=== PATIENT | male | born 1945 | race Caucasian/White ===

== ENCOUNTER → 2017-09-14 11:05 | Outpatient (CLI) | payer MEDICARE, OTHER, SELFPAY ==
[2017-09-14 12:14] LABS: Anion Gap 5 (5-15); BUN 21 mg/dL (7-18); BUN/Creat Ratio 14.2 RATIO (10-20); Chloride 107 mmol/L (98-107); Creatinine, Serum 1.48 mg/dL (0.70-1.30); EST Glomerular Filtration Rate 50 mL/min (>60); Est Glom Filt Rate - Afr Amer 60 mL/min (>60); Glucose 90 mg/dL (74-106); Potassium 4.4 mmol/L (3.5-5.1); Sodium Level 140 mmol/L (136-145)
== END ==
PROVIDERS: Family Medicine; Family Provider Family Medicine; PCP Family Medicine; Visit Provider Family Medicine
DX: R94.4 Abnormal results of kidney function studies (principal)
CPT/HCPCS: 36415; 80048

== ENCOUNTER → 2018-01-07 07:41 | Outpatient (CLI) | payer MEDICARE, OTHER, SELFPAY ==
[2018-01-07 10:48] LABS: AST(SGOT) 17 U/L (15-37); Alanine Aminotransfer ALT/SGPT 21 U/L (16-61); Albumin, Serum 3.5 g/dL (3.2-5.0); Alkaline Phosphatase 82 U/L (45-117); Anion Gap 9 (5-15); BUN 25 mg/dL (7-18); Calcium,Total 8.7 mg/dL (8.5-10.1); Chloride 108 mmol/L (98-107); Cholesterol 209 mg/dL (200); Creatinine, Serum 1.39 mg/dL (0.70-1.30); EST Glomerular Filtration Rate 53 mL/min (>60); Est Glom Filt Rate - Afr Amer 65 mL/min (>60); Globulin 3.4 g/dL (2.2-4.2); Glucose 90 mg/dL (74-106); High Density Lipoprotein 40 mg/dL; Potassium 4.2 mmol/L (3.5-5.1); Protein, Total 6.9 g/dL (6.4-8.2); Sodium Level 142 mmol/L (136-145); Triglycerides 122 mg/dL; Very Low Density Lipoprotein 24 mg/dL (5-40)
[2018-01-20 10:00] LABS: Alternaria alternata 0.11 kU/L (Class 0/I); Aspergillus fumigatus 0.14 kU/L (Class 0/I); Bahia Grass 0.66 kU/L (Class II); Bermuda Grass 1.19 kU/L (Class II); Bluegrass, Kentucky 0.59 kU/L (Class II); Cat Hair/Dander, Standard <0.10 kU/L (Class 0); Cedar, Mountain 0.32 kU/L (Class I); Cladosporium herbarum <0.10 kU/L (Class 0); Cockroach, American 0.11 kU/L (Class 0/I); D farinae Mite 0.44 kU/L (Class I); D pteronyssinus <0.10 kU/L (Class 0); Dog Epithelia <0.10 kU/L (Class 0); Elm, American White 0.58 kU/L (Class II); Hazelnut Tree 0.14 kU/L (Class 0/I); Hickory, White 0.58 kU/L (Class II); Johnson Grass 0.69 kU/L (Class II); Maple/Box Elder 0.54 kU/L (Class I); Mucor racemosus <0.10 kU/L (Class 0); Mulberry, White 0.21 kU/L (Class 0/I); Oak, White 0.76 kU/L (Class II); Penicillium chrysogen 0.69 kU/L (Class II); Plantain, English 0.69 kU/L (Class II); Ragweed, Short/Common 0.58 kU/L (Class II); Sheep Sorrel(Dock) 1.09 kU/L (Class II); Stemphylium herbarum 0.12 kU/L (Class 0/I); Sweet Gum 0.44 kU/L (Class I); Sycamore, American 1.02 kU/L (Class II)
[2018-01-20 10:33] LABS: Nettle 0.25 kU/L (Class 0/I)
== END ==
PROVIDERS: Family Provider Family Medicine; PCP Family Medicine; Visit Provider Internal Medicine Pulmonary Disease
DX: I10 Essential (primary) hypertension (principal); J45.909 Unspecified asthma, uncomplicated
CPT/HCPCS: 36415; 80053; 80061; 86003

== ENCOUNTER → 2018-07-20 14:53 | Outpatient (CLI) | payer MEDICARE, OTHER, SELFPAY ==
--- NOTE | 2018-07-20 | IMM_PTH ---
PATIENT: DELORES LOTT LOC: [facility] U#:[id number] AGE/SX: 80/M ROOM: RE07/20/[address]: Dr. Magdy Wilson MD : 1945 BED: DIS: SPEC #: [id number] RECD: 07/21/18 13:27 STATUS: UZMA REQ #: [id number] BOBBY: 07/20/18 00:[address]: Magdy Wilson DEPT: IMMUNOHISTOCHEMISTRY RECD BY: Verito Salguero Tissues: Skin of abdomen, NOS Procedures: CK5-6 (initial) MART1 (add) P40 (add) S-100 (add) PHYSICIAN & INSTITUTION [place] [address] SPECIMEN INFORMATION: Tissue Source: Skin of left abdomen, shave biopsy Clinical Info: Skin lesion abdomen Specimen Number: [id number] CPT code: 04460, 78620 x3 METHODOLOGY: Deparaffinized sections of prefer/formalin-fixed tissue or PAP/DQ stained slides are incubated with monoclonal/polyclonal antibodies/oligonucleotide probes. Localization is made via biotin free immunoperoxidase method. Appropriate controls are performed and reacted as expected. Results on target cell population are indicated in the following table: RESULTS: ANTIBODY / CLONE RESULT P40 (BC28) positive CK5-6 (D5 & 1684) positive S-100 (4C4.9) negative MART-1 (A-103) negative These tests were developed and their performance characteristics determined by [facility]. They may not have been cleared or approved by the [place]. Food and Drug Administration. The FDA has determined that such clearance or approval is not necessary. 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 MOR:hardy 07/22/18
--- NOTE | 2018-07-20 10:00 | LES_PTH ---
PATIENT: DELORES LOTT LOC: [facility] U#:[id number] AGE/SX: 80/M ROOM: RE07/20/[address]: Dr. Magdy Wilson MD : 1945 BED: DIS: SPEC #: [id number] RECD: 07/20/18 14:15 STATUS: UZMA LAVELL #: [id number] BOBBY: 07/20/18 10:[address]: Magdy Wilson DEPT: SURGICAL PATHOLOGY RECD BY: Verito Salguero Tissues: Skin of abdomen, NOS Procedures: Surgery Specimen Level IV HEADER OPERATION: Skin shave lesion PRE-OP DIAGNOSIS: Skin lesion abdomen TISSUE SUBMITTED: Skin shave biopsy left abdomen MICROSCOPIC DIAGNOSIS Left abdomen skin lesion, shave biopsy: Squamous cell carcinoma in situ, appears to be completely excised in the planes of sections examined. See comment. MOR:hardy 07/21/18 COMMENT Immunohistochemistry ([id number]) supports the above diagnosis. 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 Case has been reviewed in consultation with Dr. Moreno who concurs with the above diagnosis. IDC:AM MICROSCOPIC DESCRIPTION Slides are reviewed. GROSS DESCRIPTION Received is one container labeled with the patient's name and not further designated. The specimen consists of a shave biopsy of neves-white skin measuring 1 x 0.8 cm and 0.1 cm in thickness. The specimen is inked and submitted entirely in one cassette. It will be serially sectioned at the time of embedding. / MOR:hardy 07/20/18 TC:0 CPT: 33818
--- OUTSIDE RECORDS SUMMARY | 2018-09-05 20:27 | XMS RPT_ITS ---
:1945 Author Organization OHIP Care Team Providers Name Role Phone Magdy Wilson Attending Unavailable Magdy Wilson Referring Unavailable Katie, Magdy Primary Care Unavailable Magdy Wilson Attending Unavailable Magdy Wilson Referring Unavailable Katie, Magdy Primary Care Unavailable Magdy Wilson Attending Unavailable Magdy Wilson Primary Care Unavailable Jerel Ramos Attending Unavailable Jerel Ramos Referring Unavailable [facility], [facility] Unavailable Katie, [facility] Unavailable Dewayne Sr Attending Unavailable PROBLEMS PROBLEMS No Problem Records FoundPROCEDURES PROCEDURES No Procedure Records FoundRESULTS RESULTS EMERGENCY DEPARTMENT Observed: 08/07/2018 Status: F Source: [place] SUMMARY 8:14 AM [facility] REPOSITORY [facility] Medical Records Department [address] [place] [address] Emergency Department Summary 08/07/18 0809 MR#: [id number] Acct: [id number] Name: DELORES LOTT Rep #: [id number] : 1945 73 From: Dewayne Sr MD PCP: Magdy Wilson MD Status: PRE ER - ER Visit Summary Date of Service: 08/07/18 Chief Complaint: Cough History of Present Illness: The patient is a 73 M with a cough for the past 3 days. It wakes him up from sleep. He has no problems breathing. He has no fever or chills. He has some rhinorrhea. He has a history of asthma and has been using his albuterol. No chest pain, no abdominal pain. No neck pain. Physical Examination: Not appear in acute distress. He is speaking in full sentences without respiratory difficulty. Moist mucous membranes, there is some slight postnasal drip and rhinorrhea. No C-spine tenderness supple neck. Regular rate and rhythm without any obvious murmurs Clear lungs bilaterally speaking in full sentences without any obvious respiratory distress. He does have an active dry cough but otherwise clear lungs. Abdomen soft and nontender no guarding or rebound Moves all extremities without any difficulty or pain. Skin does not show any obvious rashes or lesions, no trauma. Alert oriented 3 with no gross focal deficit Emergency Department Course and Treatment: Patient has clear lungs, his sole complaint is a cough, this is likely bronchitis, will treat as such. I am not worried about a pneumonia and he has no fever no respiratory symptoms other than cough. He had a x-ray a few months ago which did not show any lung mass or lesion. I will discharge him with steroids and an albuterol inhaler. I do not believe antibiotics are warranted at this time. Disposition: Discharge stable condition Impression: Bronchitis This note was generated with Summay dictation software. It may contain incorrect words, spelling, and punctuation that were not noted in review of the chart prior to signing ED Disposition - Plan for ED Patient: Disposition: Home or Assisted Living Chief Complaint: Cough Instructions: ED Bronchitis Asthmatic Prescriptions: Prednisone 60 mg PO DAILY #15 tab Referrals: Jerel Ramos MD [STAFF PHYSICIAN] - 2 Days What to do if you have Problems For any increased pain, shortness of breath, bleeding, nausea or vomiting, chest pain, or any unexpected problems, contact your Primary Care Provider. Call [facility] ([phone]) or report to the closest Emergency Room. Call 911 if necessary. 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 GROSS DESCRIPTION Received in fixative is one container labeled with the patient's name and designated left trunk. The specimen consists of an ellipse of light neves excised skin measuring 1.5 x 0.7 cm and a depth of excision measuring 0.2 cm. The cutaneous surface contains a waxy neves lesion measuring 1 cm in greatest dimension. The specimen is inked, serially sectioned and totally submitted in one cassette. / AM:hardy 08/04/18 TC:3 CPT: 36993 HEADER OPERATION: Excision PRE-OP DIAGNOSIS: SCC trunk left TISSUE SUBMITTED: Skin biopsy excision MICROSCOPIC DESCRIPTION Slides are reviewed. MICROSCOPIC DIAGNOSIS Skin lesion of left trunk, biopsy: Cicatrix with associated reparative and reactive change. Mild hyperkeratosis. No evidence of malignancy. AM:hardy 08/05/18 Signed Tj Moreno DO 08/05/18 <signature on file> Performed By: #### PLES #### [facility] [address] [place], [address] LESION (CHOOSE SITE) Observed: 07/20/2018 Status: F Source: [place] 10:00 AM [facility] REPOSITORY Patient: DELORES LOTT : 1945 (73/M) Acct Num: [id number] [facility] Num: [id number] Loc: LABSPEC Specimen: [id number] Received: 07/20/18 - 1415 Spec Type: Lesion TISSUES 1 TISSUES: Skin of abdomen, NOS COMMENT Immunohistochemistry ([id number]) supports the above diagnosis. 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 Case has been reviewed in consultation with Dr. Moreno who concurs with the above diagnosis. IDC:AM GROSS DESCRIPTION Received is one container labeled with the patient's name and not further designated. The specimen consists of a shave biopsy of neves- white skin measuring 1 x 0.8 cm and 0.1 cm in thickness. The specimen is inked and submitted entirely in one cassette. It will be serially sectioned at the time of embedding. / MOR:hardy 07/20/18 TC:0 CPT: 95291 HEADER OPERATION: Skin shave lesion PRE-OP DIAGNOSIS: Skin lesion abdomen TISSUE SUBMITTED: Skin shave biopsy left abdomen MICROSCOPIC DESCRIPTION Slides are reviewed. MICROSCOPIC DIAGNOSIS Left abdomen skin lesion, shave biopsy: Squamous cell carcinoma in situ, appears to be completely excised in the planes of sections examined. See comment. SJ:hardy 07/21/18 Signed Bryan Bustamante 07/22/18 <signature on file> Performed By: #### PLES #### [facility] [place], [address] IMMUNOHISTOCHEMISTRY Observed: 07/20/2018 Status: F Source: [place] 12:00 AM [facility] REPOSITORY Patient: DELORES LOTT : 1945 (73/M) Acct Num: [id number] Phys: Katie LUCAS,[place] Unit Num: [id number] Loc: LABSPEC Specimen: [id number] Received: 07/21/181326 Spec Type: IMMUNO TISSUES 1 TISSUES: Skin of abdomen, NOS SPECIMEN INFORMATION: Tissue Source: Skin of left abdomen, shave biopsy Clinical Info: Skin lesion abdomen Specimen Number: [id number] CPT code: 56532, 24547 x3 METHODOLOGY: Deparaffinized sections of prefer/formalin-fixed tissue or PAP/DQ stained slides are incubated with monoclonal/polyclonal antibodies/oligonucleotide probes. Localization is made via biotin free immunoperoxidase method. Appropriate controls are performed and reacted as expected. Results on target cell population are indicated in the following table: RESULTS: ANTIBODY / CLONE RESULT P40 (BC28) positive CK5-6 (D5 AND 1684) positive S-100 (4C4.9) negative MART-1 (A-103) negative These tests were developed and their performance characteristics determined by [facility]. They may not have been cleared or approved by the U.S. Food and Drug Administration. The FDA has determined that such clearance or approval is not necessary. 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 SJ:hardy 07/22/18 PHYSICIAN AND INSTIT[facility] [address] [address] Signed Bryan Bustamante 07/22/18 <signature on file> Performed By: #### PIMM #### [facility] [address] [place] [address]. [place], [place], [id number] ALLERGENS, ZONE 8 Collected: 01/07/2018 Status: F Source: [place] 7:47 AM [facility] REPOSITORY Order Comment: Test(s) [id number] Cockroach, Senegalese; 817329- I573-DeC Sonoma, White; 901340-E433-IbP Sweet Gum were developed and had performance characteristics determined by [facility]. These tests have not been cleared or approved by the U.S. Food and Drug Administration. The FDA has determined that such clearance or approval is not necessary. These tests are used for clinical purposes. These should not be regarded as investigational or for research. TYPE CODE TESTS RESULT OUT OF REFERENCE UNITS RANGE LAB L5500.1001 Class 0 kU/L D PTERONYSSINUS Normal <0.10 LAB L5500.1002 Class I kU/L D FARINAE MITE High 0.44 LAB L5500.2001 Class 0 kU/L CAT HAIR/DANDER Normal <0.10 LAB L5500.2002 Class 0 kU/L DOG EPITHELIA Normal <0.10 LAB L5500.4002 Class II kU/L BERMUDA GRASS High 1.19 LAB L5500.4008 Class II kU/L BLUE[place]ASS, [place] High 0.59 LAB L5500.4010 Class II kU/L HANK GRASS High 0.69 LAB L5500.4017 Class II kU/L BAHIA GRASS High 0.66 LAB L5500.5001 Class II kU/L PEN CHRYSOGEN High 0.69 LAB L5500.5002 Class 0 kU/L CLADOSPOR HERB Normal <0.10 LAB L5500.5003 Class 0/I kU/L ASPERGILLUS FUM High 0.14 LAB L5500.5004 Class 0 kU/L MUCOR RACEMOSUS Normal <0.10 LAB L5500.5006 Class 0/I kU/L A. ALTERNATA High 0.11 LAB L5500.5010 Class 0/I kU/L STEMPHYLIUM HER High 0.12 LAB L5500.6007 Class II kU/L OAK, WHITE High 0.76 LAB L5500.6008 Class II kU/L ELM,AMER WHITE High 0.58 LAB L5500.6018 Class I kU/L MAPLE/BOX ELDER High 0.54 LAB L5500.6040 Class 0/I kU/L HAZELNUT TREE High 0.14 LAB L5500.6041 Class II kU/L HICKORY, WHITE High 0.58 LAB L5500.6061 Class II kU/L SYCAMORE, AMER High 1.02 LAB L5500.6100 Class 0/I kU/L MULBERRY, WHITE High 0.21 LAB L5500.6211 Class I kU/L SWEET GUM High 0.44 LAB L5500.6225 Class I kU/L CEDAR, MOUNTAIN High 0.32 LAB L5500.7001 Class II kU/L RAGWEED SH/COM High 0.58 LAB L5500.7006 Class 0/I kU/L MUGWORT High 0.30 LAB L5500.7009 Class II kU/L PLANTAIN,ENGLSH High 0.69 LAB L5500.7014 Class I kU/L PIGWEED, ROUGH High 0.40 LAB L5500.7018 Class II kU/L SHEEP SORREL High 1.09 LAB L5500.7020 Class 0/I kU/L NETTLE High 0.25 Result Comment: Performed at: [facility] [id number] Flattening Machine Operator: Delores Lino MD, Phone: [phone] LAB L5500.7100 Class 0/I kU/L COCKROACH,AMER High 0.11 LAB L5500.8100 . RAST COMMENT Normal Comment Result Comment: Levels of Specific IgE Class Description of Class ----- < 0.10 0 Negative 0.10 - 0.31 0/I Equivocal/Low 0.32 - 0.55 I Low 0.56 - 1.40 II Moderate 1.41 - 3.90 III High 3.91 - 19.00 IV Very High 19.01 - 100.00 V Very High >100.00 Very High Performed By: #### L5500.0600 #### [facility] (refer to report for specific site) refer to report for address and phone number COMPREHENSIVE METABOLIC Collected: 01/07/2018 Status: F Source: [place] 7:46 AM [facility] REPOSITORY Order Comment: Order Date: 09/29/17 Order Info: 0667-1 - BMP Order Date: 12/28/17 Order Info: 0786-1 - CMP Order Info: 42438-5 - LIPID TYPE CODE TESTS RESULT OUT OF RANGE REFERENCE UNITS LAB L501.0100 74-106 mg/dL Normal GLU 90 Result Comment: Please note revised GLUCOSE reference range effective 2017. LAB L501.1000 7-18 mg/dL High BUN 25 LAB L501.1100 0.70-1.30 mg/dL High CREAT,SERUM 1.39 Result Comment: The validity of the calculated GFR AND GFRAA in patients over 70 years has not been determined. Clinical correlation is essential. LAB L501.1110 >60 mL/min Low EST GFR 53 Result Comment: Non- GFR Calc LAB L501.1115 >60 mL/min Normal EST GFR - AA 65 Result Comment: GFR Calc LAB L501.1300 10-20 RATIO Normal BUN/CRE 18.0 LAB L501.1500 6.4-8.2 g/dL T Normal PROT 6.9 LAB L501.1800 3.2-5.0 g/dL Normal ALB 3.5 LAB L501.1950 2.2-4.2 g/dL Normal GLOB 3.4 LAB L501.2000 0.9-2.4 RATIO Normal A/G 1.0 LAB L501.2200 8.5-10.1 mg/dL CA Normal 8.7 LAB L501.4100 15-37 U/L Normal AST 17 LAB L501.4305 45-117 U/L Normal ALK P 82 LAB L501.4405 16-61 U/L Normal ALT 21 LAB L501.4600 0.20-1.00 mg/dL T Normal BILI 0.50 LAB L501.5300 136-145 mmol/L NA Normal 142 LAB L501.5600 3.5-5.1 mmol/L K Normal 4.2 LAB L501.5900 98-107 mmol/L High CL 108 LAB L501.6100 21.0-32.0 mmol/L Normal CO2 25.0 LAB L501.6200 5-15 Normal GAP 9 Performed By: #### L500.4050, L500.4100 #### [facility] [address] [place], [address] LIPID PROFILE Collected: 01/07/2018 Status: F Source: [place] 7:46 AM [facility] REPOSITORY Order Comment: Order Date: 09/29/17 Order Info: 0667-1 - BMP Order Date: 12/28/17 Order Info: 0786-1 - CMP Order Info: 55794-9 - LIPID TYPE CODE TESTS RESULT OUT OF RANGE REFERENCE UNITS LAB L501.4900 200 mg/dL High CHOL 209 Result Comment: <200 mg/dL Desirable 200-240 mg/dL Borderline >240 mg/dL High Risk LAB L501.5000 mg/dL Normal TRIG 122 Result Comment: The drugs N-Acetylcysteine and Metamizole may falsely depress this assay. Serum Triglycerides Reference Interval Normal <150 mg/dL Borderline high 150 - 199 mg/dL High 200 - 499 mg/dL Very High > or = 500 mg/dL LAB L501.6400 mg/dL Normal HDL 40 Result Comment: The drugs N-Acetylcysteine and Metamizole may falsely depress this assay. Reference Range HDL <40 mg/dL Low HDL Cholesterol HDL >or= 60 mg/dL High HDL Cholesterol LAB L501.6500 0-130 mg/dL High LDL 145 LAB L501.6600 5-40 mg/dL Normal VLDL 24 Performed By: #### L500.4050, L500.4100 #### [facility] [address] [place], [address] BASIC METABOLIC Collected: 09/14/2017 Status: F Source: [place] PROFILE (BMP) 11:08 AM [facility] REPOSITORY Order Comment: Order Date: 09/14/17 Order Info: 0667-1 - [facility] TYPE CODE TESTS RESULT OUT OF RANGE REFERENCE UNITS LAB L501.0100 74-106 mg/dL Normal GLU 90 LAB L501.1000 7-18 mg/dL High BUN 21 LAB L501.1100 0.70-1.30 mg/dL High 1.48 CREAT,SERUM Result Comment: The validity of the calculated GFR AND GFRAA in patients over 70 years has not been determined. Clinical correlation is essential. LAB L501.1110 >60 mL/min Low EST GFR 50 Result Comment: Non- GFR Calc LAB L501.1115 >60 mL/min Normal EST GFR - AA 60 Result Comment: GFR Calc LAB L501.1300 10-20 RATIO Normal BUN/CRE 14.2 LAB L501.2200 8.5-10.1 mg/dL CA Normal 9.0 LAB L501.5300 136-145 mmol/L NA Normal 140 LAB L501.5600 3.5-5.1 mmol/L K Normal 4.4 Result Comment: Slight Hemolysis, Result may be falsely increased. LAB L501.5900 98-107 mmol/L Normal CL 107 LAB L501.6100 21.0-32.0 mmol/L Normal CO2 28.0 LAB L501.6200 5-15 Normal 5 GAP Performed By: #### L500.2500 #### [facility] [address] [place], [address] ALLERGIES ALLERGIES DATE TYPE / CODE NAME / CODE REACTION SEVERITY SOURCE 08/07/2018 Drug codeine/F006 [facility] 508[facility](RX[facility](SNOMED M) Repository CT) 08/07/2018 Drug levofloxacin Swelling Unknown [facility] Allergy/4160 /[id number]( [facility](SNOMED RXNORM) Repository CT) ENCOUNTERS ENCOUNTERS ADMIT/DISCHARGE ACCOUNT ADMITTING ENCOUNTER LOCATION SOURCE NUMBER CLASS 08/07/2018/ [id number] Emergency [facility] [place] [facility] 4 [facility] ing:ED Repository 08/03/2018 [id number] Ambulatory [facility] [place] 1 [facility] ing:LABSPEC Repository 07/20/2018 [id number] Ambulatory [place] 7 [facility] ing:LABSPEC Repository 01/07/2018 [id number] Ambulatory [place] 9 [facility] ing:MTLAB Repository 09/14/2017 [id number] Ambulatory [facility] [place] 7 [facility] ing:MFPLAB Repository PAYERS PAYERS ENCOUNTER GUARANTOR PAYER SUBSCRIBER SOURCE 08/07/2018 DELORES Guerin Primary DELORES Aleman [id number] E Insurance:MEDICARE COOPERDOB: [facility] PART A [facility] [id number]: Repository [address]Rbs: [phone] [id number] [phone] () Date:2018-08-07 08/07/2018 Secondary DELORES Truong Aleman Insurance:[facility] COOPERDOB: [facility] Number: [id number] [id number] Repository Date:8825-69-20[address], [place] [address]CM: 08/07/2018 Tertiary NOT GIVENUNK [place] Insurance:SELF PAY [facility] Number: Effective Repository Date:2018-08-07 08/03/2018 DELORES D Primary DELORES Aleman [id number] E Insurance:MEDICARE COOPERDOB: Community [place] PART A [facility] [id number] Number: Repository [address]Axj: 330 [id number] [phone] () Date:2018-08-03 08/03/2018 Secondary DELORES Guerin [place] Insurance:CIGNAPolicy COOPERDOB: Community Number: [id number] Hospital [id number] Repository Date:0148-32-82[id number] [place] [address]OM: 08/03/2018 Tertiary NOT GIVENUNK [place] Insurance:SELF PAY [facility] Number: Effective Repository Date:2018-08-03 07/20/2018 DELORES D Primary DELORES Aleman [id number] E Insurance:MEDICARE COOPERDOB: Community [place] PART A [facility] [id number] Number: Repository [address]Gpr: 330 [id number] [phone] () Date:2018-07-20 07/20/2018 Secondary DELORES Guerin [place] Insurance:CIGNAPolicy COOPERDOB: Community Number: [id number] Hospital [id number] Repository Date:1624-19-58WF [id number] [address]HX: 07/20/2018 Tertiary NOT GIVENUNK [place] Insurance:SELF PAY [facility] Number: Effective Repository Date:2018-07-20 01/07/2018 W Catalino Primary DELORES Aleman [id number] E Insurance:MEDICARE COOPERDOB: Community [place] PART A [facility] [id number] Number: Repository [address]Fat: 330 [id number] [phone] () Date:2018-01-07 01/07/2018 Secondary DELORES Truong [place] Insurance:CIGNAPolicy COOPERDOB: Community Number: [id number] Hospital [id number] Repository Date:1754-03-82[address] [place] [address]KW: 01/07/2018 Tertiary NOT GIVENUNK [place] Insurance:SELF PAY [facility] Number: Effective Repository Date:2018-01-07 09/14/2017 W [place] Primary DELORES [id number] E Insurance:MEDICARE COOPERDOB: Community [place] PART A BPolicy [id number] Number: Repository [address]Pph: [phone] [id number] [phone] () Date:2017-09-14 09/14/2017 Secondary DELORES Aleman Insurance:CIGNAPolicy COOPERDOB: Community Number: [id number] Hospital [id number] Repository Date:0309-56-54[address]SHNVKQXTOHX, [place] [address]YI: 09/14/2017 Tertiary NOT GIVENUNK [facility] Insurance:SELF PAY [facility] Number: Effective Repository Date:2017-09-14
== END ==
PROVIDERS: Family Provider Family Medicine; PCP Family Medicine; Referring Provider Family Medicine; Visit Provider Family Medicine
DX: D09.8 Carcinoma in situ of other specified sites (principal)
CPT/HCPCS: 88305; 88341; 88342

== ENCOUNTER → 2018-08-03 15:51 | Outpatient (CLI) | payer MEDICARE, OTHER, SELFPAY ==
--- NOTE | 2018-08-03 14:30 | LES_PTH ---
PATIENT: DELORES LOTT LOC: [facility] U#:[id number] AGE/SX: 80/M ROOM: RE08/03/[address]: Dr. Magdy Wilson MD : 1945 BED: DIS: SPEC #: [id number] RECD: 08/03/18 15:51 STATUS: UZMA LAVELL #: [id number] BOBBY: 08/03/18 14:[address]: Magdy Wilson DEPT: SURGICAL PATHOLOGY RECD BY: Denys Chavez Tissues: Thumb, NOS Procedures: Surgery Specimen Level IV HEADER OPERATION: Excision PRE-OP DIAGNOSIS: SCC trunk left TISSUE SUBMITTED: Skin biopsy excision MICROSCOPIC DIAGNOSIS Skin lesion of left trunk, biopsy: Cicatrix with associated reparative and reactive change. Mild hyperkeratosis. No evidence of malignancy. AM:hardy 08/05/18 COMMENT Reference is made to the patient's recent shave biopsy of left abdomen ([id number]) in which squamous cell carcinoma in situ was identified. MICROSCOPIC DESCRIPTION Slides are reviewed. GROSS DESCRIPTION Received in fixative is one container labeled with the patient's name and designated left trunk. The specimen consists of an ellipse of light neves excised skin measuring 1.5 x 0.7 cm and a depth of excision measuring 0.2 cm. The cutaneous surface contains a waxy neves lesion measuring 1 cm in greatest dimension. The specimen is inked, serially sectioned and totally submitted in one cassette. / AM:hardy 08/04/18 TC:3 CPT: 86328
== END ==
PROVIDERS: Family Provider Family Medicine; PCP Family Medicine; Referring Provider Family Medicine; Visit Provider Family Medicine
DX: D04.5 Carcinoma in situ of skin of trunk (principal)
CPT/HCPCS: 88305

== ENCOUNTER 2018-08-07 07:49 | Emergency (ER) | payer MEDICARE, OTHER, SELFPAY ==
[2018-08-07 07:50] VITALS: BP 128/85; PULSE 99; RESP 20; TEMP 36.4; O2SAT 92; BMI 30.6
--- NOTE | 2018-08-07 08:09 | ED.VISSUMM ---
- ER Visit Summary Date of Service: 08/07/18 Chief Complaint: Cough History of Present Illness: The patient is a 73 M with a cough for the past 3 days. It wakes him up from sleep. He has no problems breathing. He has no fever or chills. He has some rhinorrhea. He has a history of asthma and has been using his albuterol. No chest pain, no abdominal pain. No neck pain. Physical Examination: Not appear in acute distress. He is speaking in full sentences without respiratory difficulty. Moist mucous membranes, there is some slight postnasal drip and rhinorrhea. No C-spine tenderness supple neck. Regular rate and rhythm without any obvious murmurs Clear lungs bilaterally speaking in full sentences without any obvious respiratory distress. He does have an active dry cough but otherwise clear lungs. Abdomen soft and nontender no guarding or rebound Moves all extremities without any difficulty or pain. Skin does not show any obvious rashes or lesions, no trauma. Alert oriented ?3 with no gross focal deficit Emergency Department Course and Treatment: Patient has clear lungs, his sole complaint is a cough, this is likely bronchitis, will treat as such. I am not worried about a pneumonia and he has no fever no respiratory symptoms other than cough. He had a x-ray a few months ago which did not show any lung mass or lesion. I will discharge him with steroids and an albuterol inhaler. I do not believe antibiotics are warranted at this time. Disposition: Discharge stable condition Impression: Bronchitis This note was generated with [employer] dictation software. It may contain incorrect words, spelling, and punctuation that were not noted in review of the chart prior to signing ED Disposition - Plan for ED Patient: Disposition: Home or Assisted Living Chief Complaint: Cough Instructions: ED Bronchitis Asthmatic Prescriptions: Prednisone 60 mg PO DAILY #15 tab Referrals: Jerel Ramos MD [STAFF PHYSICIAN] - 2 Days
== END 2018-08-07 08:53 | disposition home or self-care (01) ==
LOC: ED 08:26
PROVIDERS: Emergency Provider Emergency Medicine; Family Provider Family Medicine; PCP Family Medicine
DX: J40 Bronchitis, not specified as acute or chronic (principal); I10 Essential (primary) hypertension
CPT/HCPCS: 99282

== ENCOUNTER → 2018-09-20 13:39 | Outpatient (CLI) | payer MEDICARE, OTHER, SELFPAY ==
--- NOTE | 2018-09-20 13:50 | RAD_ITS ---
STUDY: X-RAY - THORACIC SPINE REASON FOR EXAM: Male, 73 years old. Low back pain. TECHNIQUE: 3 view(s) of the thoracic spine were obtained on 5 images. COMPARISON: None. FINDINGS: Normal kyphosis of the thoracic spine. There is no substantial scoliosis. There is multilevel endplate spondylosis of the thoracic vertebrae, particularly at the lower thoracic levels. There is multilevel disc space narrowing of the lower thoracic spine. There is no demonstrated osseous structural lesion or compression fracture. The soft tissue structures are unremarkable. RAD/Thoracic Spine 3 Views IMPRESSION: Multilevel degenerative changes of the thoracic spine. Electronically Signed: Jasvir Moon MD at 8:58 EST , Service support ,
--- NOTE | 2018-09-20 14:11 | RAD_ITS ---
STUDY: X-RAY - LUMBAR SPINE REASON FOR EXAM: Male, 73 years old. Low back pain. TECHNIQUE: 3 view(s) of the lumbar spine were obtained. COMPARISON: 3 views of the lumbar spine March 31, 2017. FINDINGS: Normal lumbar lordosis. There is no substantial scoliosis. There is stable retrolistheses of L1 on L2 and L2 on L3 as well as borderline retrolisthesis of L3 on L4. There is multilevel endplate spondylosis of the lumbar vertebrae. There is multi-level degenerative disc disease with multi-level disc space narrowing. There is stable depression of the superior L1 vertebral endplate. There is stable hypertrophic degenerative arthroses of the lumbar facet joints. There is atherosclerotic calcification of the abdominal aorta without a demonstrated aneurysm. RAD/Lumbar Spine 2 or 3 Views IMPRESSION: Stable degenerative changes of the spine, as detailed above, as well as stable depression of the superior L1 vertebral endplate. Electronically Signed: Jasvir Moon MD at 9:01 EST , Service support ,
== END ==
PROVIDERS: Family Provider Family Medicine; PCP Family Medicine; Referring Provider Anesthesiology Pain Medicine; Visit Provider Anesthesiology Pain Medicine
DX: M54.9 Dorsalgia, unspecified (principal)
CPT/HCPCS: 72072; 72100

== ENCOUNTER → 2018-12-06 14:58 | Outpatient (CLI) | payer MEDICARE, OTHER, SELFPAY ==
[2018-12-06 14:12] VITALS: BMI 30.9
[2018-12-06 15:17] LABS: Absolute Lymphocyte Count 1.84 X10^3/ul (0.83-4.51); Basophil# 0.07 X10^3/uL; Basophil% 0.9 % (0-1); Eosinophil# 0.79 X10^3/uL; Eosinophils% 10.6 % (0-5); Hematocrit 46.5 % (40-54); Hemoglobin 15.6 g/dl (13.0-16.5); Lymphocyte # 1.84 X10^3/ul (4.0); Lymphocyte % 24.8 % (19-41); Mean Corp Hgb Conc 33.5 g/gl (32-36); Mean Corpuscular Hgb 30.4 pg (27.0-32.0); Mean Corpuscular Volume 90.6 fL (80-94); Mean Platelet Vol. 9.7 fl (6.2-12.0); Monocyte# 0.68 X10^3/uL; Monocyte% 9.2 % (0-10); Neutrophil # 4.02 X10^3/uL (2.7-7.7); Neutrophil % 54.2 % (47-70); Platelet Count 247 K/mm3 (150-450); RBC Distribution Width CV 13.2 % (11.6-14.6); RBC Distribution Width SD 43.5 fl (35.1-43.9); Red Blood Count 5.13 M/mm3 (4.6-6.2); White Blood Count 7.4 K/mm3 (4.4-11.0)
[2018-12-06 15:18] LABS: POSITIVE COUNT NO; POSITIVE DIFFERENTIAL NO; POSITIVE MORPHOLOGY NO
[2018-12-15 03:06] LABS: Aspirgillus flavus Negative (Neg:<1:1); Aspirgillus fumigatus Negative (Neg:<1:1); Aspirgillus niger Negative (Neg:<1:1)
[2018-12-15 16:20] LABS: Immunoglobulin E 1395 IU/mL (6-495)
== END ==
PROVIDERS: Family Provider Family Medicine; PCP Family Medicine; Referring Provider Internal Medicine Critical Care Medicine; Visit Provider Internal Medicine Critical Care Medicine
DX: J45.909 Unspecified asthma, uncomplicated (principal); J30.9 Allergic rhinitis, unspecified
CPT/HCPCS: 36415; 82785; 85025; 86606

== ENCOUNTER → 2019-04-18 12:01 | Outpatient (CLI) | payer MEDICARE, OTHER, SELFPAY ==
[2019-04-11 07:35] VITALS: BMI 29.5
[2019-04-18 14:11] LABS: Anion Gap 7 (5-15); BUN 25 mg/dL (7-18); BUN/Creat Ratio 18.4 RATIO (10-20); Calcium,Total 8.9 mg/dL (8.5-10.1); Chloride 106 mmol/L (98-107); Creatinine, Serum 1.36 mg/dL (0.70-1.30); EST Glomerular Filtration Rate 55 mL/min (>60); Est Glom Filt Rate - Afr Amer 66 mL/min (>60); Glucose 91 mg/dL (74-106); Potassium 4.2 mmol/L (3.5-5.1); Sodium Level 141 mmol/L (136-145)
== END ==
PROVIDERS: Family Provider Family Medicine; PCP Family Medicine; Referring Provider Family Medicine; Visit Provider Family Medicine
DX: R42 Dizziness and giddiness (principal)
CPT/HCPCS: 36415; 80048

== ENCOUNTER → 2019-05-17 12:14 | Outpatient (CLI) | payer MEDICARE, OTHER, SELFPAY ==
[2019-05-17 11:24] VITALS: BMI 29.5
[2019-05-17 12:56] LABS: Absolute Lymphocyte Count 2.41 X10^3/uL (0.83-4.51); Absolute Neutrophil Count 3.3 X10^3/uL (2.0-7.7); Basophil# 0.08 X10^3/uL; Basophil% 0.9 % (0-1); Eosinophil# 1.82 X10^3/uL; Eosinophils% 21.5 % (0-5); Hematocrit 47.6 % (40-54); Hemoglobin 15.6 g/dL (13.0-16.5); Lymphocyte # 2.41 X10^3/ul (4.0); Lymphocyte % 28.5 % (19-41); Mean Corp Hgb Conc 32.8 g/dL (32-36); Mean Corpuscular Hgb 31.2 pg (27.0-32.0); Mean Corpuscular Volume 95.2 fL (80-94); Mean Platelet Vol. 10.4 fl (6.2-12.0); Monocyte# 0.75 X10^3/uL; Monocyte% 8.9 % (0-10); NRBC Flagged by Analyzer 0 % (0-5); Neutrophil # 3.34 X10^3/uL (2.7-7.7); Neutrophil % 39.6 % (47-70); Platelet Count 250 K/mm3 (150-450); RBC Distribution Width CV 12.6 % (11.6-14.6); RBC Distribution Width SD 43.4 fl (35.1-43.9); White Blood Count 8.5 K/mm3 (4.4-11.0)
== END ==
PROVIDERS: Family Provider Family Medicine; PCP Family Medicine; Referring Provider Nurse Practitioner Acute Care; Visit Provider Nurse Practitioner Acute Care
DX: R05 Cough (principal)
CPT/HCPCS: 36415; 85025; 87633

== ENCOUNTER → 2019-06-22 09:10 | Outpatient (CLI) | payer MEDICARE, OTHER, SELFPAY ==
[2019-05-17 11:24] VITALS: BMI 29.5
[2019-06-22 10:38] LABS: AST(SGOT) 21 U/L (15-37); Alanine Aminotransfer ALT/SGPT 24 U/L (16-61); Albumin, Serum 3.3 g/dL (3.2-5.0); Alkaline Phosphatase 80 U/L (45-117); Anion Gap 5 (5-15); BUN 22 mg/dL (7-18); BUN/Creat Ratio 16.5 RATIO (10-20); Calcium,Total 9.1 mg/dL (8.5-10.1); Chloride 107 mmol/L (98-107); Cholesterol 181 mg/dL (200); Creatinine, Serum 1.33 mg/dL (0.70-1.30); EST Glomerular Filtration Rate 56 mL/min (>60); Est Glom Filt Rate - Afr Amer 68 mL/min (>60); Globulin 3.4 g/dL (2.2-4.2); Glucose 86 mg/dL (74-106); High Density Lipoprotein 66 mg/dL; PSA,Total - Annual Screen 2.25 ng/mL (0.00-4.00); Potassium 4.4 mmol/L (3.5-5.1); Protein, Total 6.7 g/dL (6.4-8.2); Sodium Level 140 mmol/L (136-145); Triglycerides 94 mg/dL; Very Low Density Lipoprotein 19 mg/dL (5-40)
== END ==
PROVIDERS: Family Provider Family Medicine; PCP Family Medicine; Referring Provider Family Medicine; Visit Provider Family Medicine
DX: I10 Essential (primary) hypertension (principal); Z12.5 Encounter for screening for malignant neoplasm of prostate
CPT/HCPCS: 36415; 80053; 80061; 84153; G0103

== ENCOUNTER → 2020-01-31 | Outpatient (CLI) | payer MEDICARE, OTHER, SELFPAY ==
[2020-01-15 12:36] VITALS: BMI 30.3
[2020-01-31 10:39] LABS: Anion Gap 5 (5-15); BUN 24 mg/dL (7-18); BUN/Creat Ratio 18.5 RATIO (10-20); Calcium,Total 8.8 mg/dL (8.5-10.1); Chloride 109 mmol/L (98-107); EST Glomerular Filtration Rate 57 mL/min (>60); Est Glom Filt Rate - Afr Amer 70 mL/min (>60); Glucose 92 mg/dL (74-106); Potassium 4.4 mmol/L (3.5-5.1); Sodium Level 142 mmol/L (136-145)
== END | disposition home or self-care (01) ==
LOC: MFPLAB 08:04
PROVIDERS: PCP Family Medicine; Visit Provider Family Medicine
DX: I10 Essential (primary) hypertension (principal)
CPT/HCPCS: 36415; 80048